=== PATIENT | male | born 1960 | race Caucasian/White ===

== ENCOUNTER 2018-09-29 21:42 | Emergency (ER) | payer OTHER ==
[~2018-09-29] VITALS: Ht 172.7 cm; Wt 84.8 kg
[2018-09-29 22:04] VITALS: BP 132/91; Ht 172.7 cm; Wt 84.8 kg
[2018-09-29 23:12] LABS: UA SPECIFIC GRAVITY >=1.030 (1.005-1.035); microscopic required? YES; urine erythrocyte 3+ (NEGATIVE)
== END 2018-09-29 22:52 | disposition home or self-care (01) ==
LOC: ED 21:42
PROVIDERS: Specialist
DX: N39.0 Urinary tract infection, site not specified (principal); I10 Essential (primary) hypertension; E78.00 Pure hypercholesterolemia, unspecified; Z98.890 Other specified postprocedural states; Z85.46 Personal history of malignant neoplasm of prostate